=== PATIENT | female | born 2000 | race Hispanic/Latino ===

== ENCOUNTER 2024-04-24 14:13 | Outpatient (CLI) | payer OTHER | END 2024-04-24 14:14 | disposition home or self-care (01) | LOC: BICULT 14:13 | PROVIDERS: ATTEND Nurse Practitioner Women's Health | DX: Z34.03 Encounter for supervision of normal first pregnancy, third trimester (principal); N28.89 Other specified disorders of kidney and ureter; Z3A.35 35 weeks gestation of pregnancy | CPT/HCPCS: 76805 ==